=== PATIENT | female | born 1960 | race Caucasian/White ===

== ENCOUNTER → 2023-09-14 | Outpatient (CLI) | payer BC ==
[2023-09-14 13:56] VITALS: BP 121/76; PULSE 78; RESP 16; TEMP 98.4
--- NOTE | 2023-09-14 14:47 | P.SLEEP ---
History of Present Illness H&P Date: 09/14/23 Chief Complaint: Sleep apnea management This is a 61-year-old female patient, a contracted employee for [employer] who used to live in [place] and because of her job she has moved between [place] and [place] and currently she is back in [place]. During her stay in [place], the patient was diagnosed having obstructive sleep apnea. She was told that her apnea-hypopnea index was 15. Diagnosed with established back in 2015. At that time, the patient was given a ResMed 10 CPAP unit which is an AutoPap machine set at a pressure of 6/11 cm of water and she was given a nasal pillow AirFit P10 small size. Over the years, she has [facility]. She has not gotten any supplies for the past 2 years and the patient is interested in establishing his care with me in the office. She is doing well for now. She is using the machine every night. She is going to bed around 10 PM, waking up at 6 AM in the morning. No major hypersomnia or sleepiness and sleep quality is improved considerably while being on CPAP therapy. Does not take any naps during the day. Her weight is up by around 5 pounds over the past 1 year and more than 40 pounds over the past 5 years. No sleep paralysis. No hallucinations. No cataplexy. Her current Aldrich score is at 30. She is known to have hyperlipidemia, hypothyroidism and hypertension in addition. No history of stroke. No history of any motor vehicle accidents because of feeling drowsy or sleepy. No excessive utilization of alcoholic beverages or caffeine. She sleeps on her side. No nighttime chest pain or shortness of breath or heartburn. No other new complaints otherwise for now. No restlessness in lower extremities. No grinding. No choking. I checked her machine and the patient's compliancy was great. He has been utilizing the machine on average of 7 hours per night and her compliancy for more than 4 hours was 100%. 95th percentile pressure is at 10.9. Her AHI is down to 0.9 and the leak is in order of 4 L/min. Her machine is functional. Review of Systems Constitutional: Reports daytime sleepiness, Reports fatigue, Reports weight gain Eyes: denies as per HPI, denies blurred vision, denies bulging eye, denies decreased vision, denies diplopia, denies discharge, denies dry eye, denies irritation, denies itching, denies pain, denies photophobia, denies loss of peripheral vision, denies loss of vision, denies tunnel vision/blind spots Ears: deny: decreased hearing, ear discharge, earache, tinnitus Ears, nose, mouth and throat: Reports as per HPI Breasts: absent: as per HPI, change in shape, gynecomastia, masses, nipple discharge, pain, skin changes, swelling Cardiovascular: Reports as per HPI Respiratory: Reports sleep apnea Gastrointestinal: Reports as per HPI Genitourinary: Reports as per HPI Menstruation: Reports as per HPI Musculoskeletal: Reports as per HPI Musculoskeletal: absent: ankle pain, ankle stiffness, ankle swelling, as per HPI, elbow pain, elbow stiffness, elbow swelling, foot pain, foot stiffness, foot swelling, hand pain, hand stiffness, hand swelling, hip pain, hip stiffness, hip swelling, knee pain, knee stiffness, knee swelling, shoulder pain, shoulder stiffness, shoulder swelling, wrist pain, wrist stiffness, wrist swelling Integumentary: Reports as per HPI Neurological: Reports as per HPI Psychiatric: Reports as per HPI Endocrine: Reports as per HPI Hematologic/Lymphatic: Reports as per HPI Allergic/Immunologic: Reports as per HPI Past Medical History Past Medical History: Hyperlipidemia, Hypertension, Sleep Apnea/CPAP/BIPAP Additional Past Medical History / Comment(s): Anemia before partial hysterectomy History of Any Multi-Drug Resistant Organisms: None Reported Past Surgical History: Hysterectomy, Orthopedic Surgery Additional Past Surgical History / Comment(s): RT Knee Arthroscopy, Thyroidect lance Past Anesthesia/Blood Transfusion Reactions: Previous Problems w/ Anesthesia Additional Past Anesthesia/Blood Transfusion Reaction / Comment(s): 1st surgery had paralysis for 24 hours Past Psychological History: No Psychological Hx Reported Smoking Status: Never smoker Past Alcohol Use History: Occasional Past Drug Use History: None Reported - Past Family History Father Family Medical History: Cancer, Coronary Artery Disease (CAD), GERD/Reflux, Hyperlipidemia, Hypertension Additional Family Medical History / Comment(s): anemia, snoring Mother Family Medical History: CVA/TIA, Hyperlipidemia, Hypertension Additional Family Medical History / Comment(s): sinus headaches, snoring Medications and Allergies Home Medications Medication Instructions Recorded Confirmed Type Nebivolol HCl 10 mg PO DAILY 09/14/23 09/14/23 History Olmesartan Medoxomil 20 mg PO DAILY 09/14/23 09/14/23 History Progesterone, Micronized 200 mg PO DAILY 09/14/23 09/14/23 History [Progesterone] Simvastatin 10 mg PO DAILY 09/14/23 09/14/23 History Thyroid,Pork [Tyrone Thyroid] 15 mg PO DAILY 09/14/23 09/14/23 History Thyroid,Pork [Tyrone Thyroid] 60 mg PO DAILY 09/14/23 09/14/23 History Physical Exam Vitals: Vital Signs Temp Pulse Resp BP Pulse Ox 09/14/23 13:54 98.4 F 78 16 121/76 96 Intake and Output 09/13/23 09/14/23 09/14/23 22:59 06:59 14:59 Other: Weight 108.409 kg The patient appeared well nourished and normally developed. Vital signs as documented. Head exam is unremarkable. No scleral icterus or corneal arcus noted. Neck is without jugular venous distension, thyromegaly, or carotid bruits. Carotid upstrokes are brisk bilaterally. Lungs are clear to auscultation and percussion. Cardiac exam reveals the PMI to be normally sized and situated. Rhythm is regular. First and second heart sounds normal. No murmurs, rubs or gallops. Abdominal exam reveals normal bowel sounds, no masses, no organomegaly and no aortic enlargement. Extremities are nonedematous and both femoral and pedal pulses are normal. Examination of the skin revealed no evidence of significant rashes, suspicious appearing nevi or other concerning lesions. Neurologically, the patient is awake and alert and the patient does not have any focal neurological deficit. Cranial nerves are essentially intact. Assessment and Plan Plan: Obstructive sleep apnea, diagnosed with established in the [facility] back in 2016. The patient was told to have an AHI of 15. No official documentation in his original home sleep study that was done at the time of the diagnosis. Nevertheless, the patient has been treated successfully in the patient is currently utilizing a ResMed APAP unit pressures of 6/11 cm of water. Hypersomnia, improved with CPAP therapy, current Aldrich score is down to 3 Obesity Hypertension Hyperlipidemia Hypothyroidism Plan This patient is doing well. No major hypersomnia or sleepiness during the day. Patient CPAP therapy has been successful. No need for any pressure adjustments. Noted to have 95th percentile pressure is at 10.9. The patient was to maintain the same mask interface. Refills will be given on her supplies and the patient is using a small size AirFit P10 nasal pillow Activated EPR and started at the level of 3 Compliancy check was done will order all of her supplies through [facility]. Will try also to get documentation on her original home sleep study. If unable to locate the previous study, she may need another home sleep study in the future they can facilitate our orders and updating her old CPAP unit. Encourage weight loss Maintain good sleep hygiene measures Comorbidities are stable Will continue to follow Sleep Note - Sleep Data ESS Total: 3 - Sleep Note Sleep Note: Temperature: 98.4 F Pulse Rate: 78 Respiratory Rate: 16 Blood Pressure: 121/76 SpO2: 96 Height: 5 ft 6 in Weight: 108.409 kg BMI: Neck Circumference: 16
== END ==
LOC: 3 N SLEEP 13:45
PROVIDERS: ATTEND Internal Medicine Critical Care Medicine
DX: G47.33 Obstructive sleep apnea (adult) (pediatric) (principal); E66.9 Obesity, unspecified; I10 Essential (primary) hypertension; E78.5 Hyperlipidemia, unspecified; E03.9 Hypothyroidism, unspecified; Z68.38 Body mass index [BMI] 38.0-38.9, adult; Z79.890 Hormone replacement therapy; Z79.899 Other long term (current) drug therapy
CPT/HCPCS: 99202

== ENCOUNTER → 2024-06-05 | Outpatient (CLI) | payer BC ==
--- NOTE | 2024-06-05 07:49 | MM ---
Reason for Exam: Follow-up at short interval from prior study. Last screening mammogram was performed 9 month(s) ago. Patient History: Menarche at age 14. Patient has no children. Hysterectomy at age 47. Maternal cousin had breast cancer, age 50. Risk Values: Karen 5 year model risk: 1.7%. NCI Lifetime model risk: 7.7%. Prior Study Comparison: 04/01/2022 Bilateral Screening Mammogram, [facility]. 07/26/2023 Bilateral Screening Mammogram, [facility]. 08/18/2023 Left Diagnostic Mammogram, Unknown. Tissue Density: Left: The breasts are heterogeneously dense, which may obscure small masses. Findings: Analyzed By CAD. Nodular density upper left MLO view is smaller in size although does persist. Ultrasound is recommended. No new masses are present. No suspicious calcifications within the left breast this time. Overall Assessment: Incomplete: need additional imaging evaluation, BI-RAD 0 Management: Diagnostic Breast Ultrasound of the left breast. . Results were given to the patient verbally at the time of exam. Patient should continue monthly self-breast exams. A clinical breast exam by your physician is recommended on an annual basis. This exam should not preclude additional follow-up of suspicious palpable abnormalities. Note on Karen scores and lifetime risk: 1. A Karen score greater than 3% is considered moderate risk. If this is the case, consider specialist referral to assess eligibility for a risk reducing agent. 2. If overall lifetime risk for the development of breast cancer is 20% or higher, the patient may qualify for future screening with alternating mammogram and breast MRI. [facility], , 06/05/2024 7:47 AM. Electronically signed and approved by: Crescencio Gibson M.D. Radiologis
--- NOTE | 2024-06-05 08:18 | USB ---
Reason for Exam: Follow-up at short interval from prior study. Patient History: Menarche at age 14. Patient has no children. Hysterectomy at age 47. Maternal cousin had breast cancer, age 50. Risk Values: Karen 5 year model risk: 1.7%. NCI Lifetime model risk: 7.7%. Technique: Method: Targeted. Prior Study Comparison: 07/26/2023 Bilateral Screening Mammogram, [facility]. 08/18/2023 Left Diagnostic Mammogram, Unknown. 08/18/2023 Left Diagnostic Mammogram, Unknown. Findings: The upper section of the breast of the left breast, the axilla of the left breast and the retroareolar of the left breast were scanned. Septated cyst at the left 11:00 position 4 cm from the nipple measures 7 x 4 mm. Simple cyst at the left 1:00 position 3 cm from the nipple measures 1 cm x 0.5 cm. Mildly prominent ducts are noted in the retroareolar region. No solid masses are detected. Previously noted 9:00 lesion is not reproduced at this time. Overall Assessment: Probably benign, BI-RAD 3 Management: Diagnostic Breast Ultrasound of the left breast in 6 months. A clinical breast exam by your physician is recommended on an annual basis and results should be correlated with mammographic findings. This exam should not preclude additional follow-up of suspicious palpable abnormalities. Results were given to the patient verbally at the time of exam. [facility], , 06/05/2024 8:15 AM. Electronically signed and approved by: Crescencio Gibson M.D. Radiologis
== END | disposition home or self-care (01) ==
LOC: RADMAMWWP 07:21
PROVIDERS: ATTEND Obstetrics & Gynecology
DX: R92.8 Other abnormal and inconclusive findings on diagnostic imaging of breast (principal); R92.332 Mammographic heterogeneous density, left breast; Z80.3 Family history of malignant neoplasm of breast
CPT/HCPCS: 77061; 77065